=== PATIENT | female | born 1970 | race Caucasian/White ===

== ENCOUNTER 2017-06-08 15:23 | Emergency (ER) | payer SELFPAY ==
[~2017-06-08] VITALS: Ht 160 cm; Wt 92.0 kg
[~2017-06-08 15:23] MED LIST: BACT800T5 PO; BUSP10TA8 PO; CLIN1CAP5 PO; MOBI15TA PO; PAXI40TA PO; TRAZ100 PO
[2017-06-08 15:27] VITALS: BP 123/78; PULSE 121; RESP 20; TEMP 99.1; O2SAT 100
--- NOTE | 2017-06-08 18:41 | PD ---
HPI Chief Complaint: Back/ Neck Pain or Injury Time Seen by Provider: 18:34 Travel History International Travel<30 days: No Contact w/Intl Traveler<30days: No Traveled to known affect area: No History of Present Illness HPI Patient is a 46-year-old female presents the emergency department with right- sided neck pain radiating down her right arm with numbness and tingling and without weakness for the past 4 days. 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 Denies any chest pain shortness of breath weakness difficulty urinating. States the pain is severe, for the past 4 days, intermittent, spasmodic, context as above. PFSH Past Medical History Hypertension: Yes Tetanus Vaccination: < 5 Years ?: Not LMP: 06/01/17 Past Surgical History Abdominal Surgery: Yes (15 hernias) Cholecystectomy: Yes Other Surgery: Yes (spleen) Social History Alcohol Use: No Tobacco Use: Yes Substance Use: No Allergies-Medications (Allergen,Severity, Reaction): Coded Allergies: No Known Allergies (Unverified Adverse Reaction, Unknown, 06/08/17) Reported Meds & Prescriptions Reported Meds & Active Scripts Active Flexeril (Cyclobenzaprine HCl) 10 Mg Tab 10 Mg PO TID Review of Systems Except as stated in HPI: all other systems reviewed are Neg Physical Exam Narrative GENERAL: Well-developed, well-nourished, crying. Nontoxic. SKIN: Focused skin assessment warm/dry. HEAD: Atraumatic. Normocephalic. EYES: Pupils equal and round. No scleral icterus. No injection or drainage. ENT: No nasal bleeding or discharge. Mucous membranes pink and moist. NECK: Trachea midline. No JVD. CARDIOVASCULAR: Regular rate and rhythm. No murmur appreciated. RESPIRATORY: No accessory muscle use. Clear to auscultation. Breath sounds equal bilaterally. GASTROINTESTINAL: Abdomen soft, non-tender, nondistended. Hepatic and splenic margins not palpable. MUSCULOSKELETAL: No obvious deformities. No clubbing. No cyanosis. No edema. No midline CT or L-spine tenderness, no bony tenderness. She has minimal tenderness over the scapula on the right side. Seems to be muscular tenderness, NEUROLOGICAL: Awake and alert. No obvious cranial nerve deficits. Motor grossly within normal limits. Normal speech. Patient has 5 out of 5 strength in all 4 extremities, light touch sensation is intact bilaterally. PSYCHIATRIC: Appropriate mood and affect; insight and judgment normal. Data Data Last Documented VS Vital Signs Date Time Temp Pulse Resp B/P (MAP) Pulse Ox O2 Delivery O2 Flow Rate FiO2 06/08/17 19:30 06/08/17 15:27 99.1 121 20 100 Room Air Orders Orders Acetamin-Hydrocod 325-5 Mg ([place] 5-325 (06/08/17 18:45) Cyclobenzaprine (Flexeril) (06/08/17 18:45) Ed Discharge Order (06/08/17 19:09) Orphenadrine Inj (Norflex Inj) (06/08/17 19:30) [facility] Medical Decision Making Medical Screen Exam Complete: Yes Emergency Medical Condition: Yes Differential Diagnosis Radiculopathy, degenerative disc disease, cervical stenosis Narrative Course Patient room to the emergency department, [place] and Norflex as well as Flexeril were given, patient had some relief in her pain. Review of your E4 says that she has been chronically on Suboxone, she states she has been out of it for a few days. Discussed that she needs to follow-up with her prescribing physician for further pain control as well as consideration of outpatient workup up to and possibly including MRI, there is no indication for emergent MRI today, she stable for discharge Diagnosis Primary Impression: Neck pain Additional Impression: Radiculopathy Med/Other Pt SpecificInfo: Prescription(s) given Scripts Cyclobenzaprine (Flexeril) 10 Mg Tab 10 MG PO TID for Muscle Spasm, #20 TAB 0 Refills Prov: Antonino Norris MD 06/08/17 Disposition: 01 DISCHARGE HOME Condition: Stable Antonino Norris MD Jun 08, 2017 18:41
[2017-06-08] MEDS ORDERED: CYCLOBENZAPRINE HCL 10 MG TAB PO ONE (18:45)
[2017-06-08] MEDS ORDERED: ACETAMINOPHEN/HYDROcodone 325 MG/5 MG TAB PO ONE (18:45)
[2017-06-08] MEDS ORDERED: CYCL10TA PO (19:11)
[2017-06-08] MEDS ORDERED: ORPHENADRINE INJ 60 MG/2 ML AMP IM ONE (19:30)
== END 2017-06-08 19:36 | disposition home or self-care (01) ==
LOC: NEPD 15:23
DX: M54.2 Cervicalgia (principal); M54.10 Radiculopathy, site unspecified; I10 Essential (primary) hypertension; Z79.891 Long term (current) use of opiate analgesic; Z72.0 Tobacco use
CPT/HCPCS: 96372; 99283; J2360